=== PATIENT | female | born 2000 | race Caucasian/White ===

== ENCOUNTER 2021-10-30 05:40 | Day surgery (SDC) | payer BC, OTHER ==
[2021-10-25 15:54] LABS: BASOPHILS % (AUTO) 0.3 % (0.0-5.0); EOSINOPHILS % (AUTO) 1.8 % (0.0-8.0); HEMATOCRIT 38.3 % (36-48); LYMPHOCYTES % (AUTO) 28.9 % (21.0-51.0); MEAN CORPUSCULAR HGB CONC 33.4 g/dL (32.0-36.0); MEAN CORPUSCULAR VOLUME 89.9 fL (80-100); MONOCYTES % (AUTO) 9.2 % (3.0-13.0); NEUTROPHILS % (AUTO) 59.5 % (40.0-77.0); PLATELET COUNT (AUTO) 194 K/uL (130-400); RED BLOOD CELL COUNT(AUTO) 4.26 MIL/uL (4.00-5.50); RED CELL DISTRIBUTION WIDTH 12.1 % (11.0-15.5); WHITE BLOOD COUNT (AUTO) 6.7 K/uL (4.8-10.8)
[2021-10-25 16:13] LABS: CREATININE 0.6 mg/dL (0.5-1.5); POTASSIUM 3.8 mmol/L (3.5-5.1)
[2021-10-29 08:55] VITALS: BP 114/75
[2021-10-30] VITALS (16 sets, daily range): BP systolic 120–133; BP diastolic 59–77
[~2021-10-30] VITALS: Ht 180.3 cm; Wt 63.9 kg
[2021-10-30] MEDS: CEFAZOLIN SODIUM 1 GM VIAL IVP SCH ×2 (06:00→07:20)
[2021-10-30] MEDS ORDERED: LACTATED RINGERS 1000ML 1,000 ML IV SCH (06:00)
[2021-10-30] MEDS ORDERED: FAMOTIDINE 20MG VIAL IV ONE (06:49)
[2021-10-30] MEDS ORDERED: LIDOCAINE PF 100MG/5ML (2%) SYRINGE 5ML ONE (06:59)
[2021-10-30] MEDS ORDERED: PROPOFOL 10 MG/ML 20ML VIAL IV ONE (06:59)
[2021-10-30] MEDS ORDERED: FENTANYL CITRATE PF 50 MCG/1 ML 2ML VIAL ONE (07:00)
[2021-10-30] MEDS ORDERED: MIDAZOLAM HCL 1 MG/ML 2ML VIAL ONE (07:00)
[2021-10-30] MEDS ORDERED: ONDANSETRON 4MG INJ ONE (07:01)
[2021-10-30] MEDS ORDERED: MEPERIDINE-PF 25 MG/ML SYG ONE (07:47)
[2021-10-30] MEDS ORDERED: EPHEDRINE SULFATE 50 MG/ML AMPULE ONE (08:13)
[2021-10-30] MEDS ORDERED: KETOROLAC 30MG VIAL (30MG/ML) ONE (09:50)
== END 2021-10-30 10:35 | disposition home or self-care (01) ==
LOC: DAH 05:40
PROVIDERS: ATTEND Orthopaedic Surgery
DX: S83.242A Other tear of medial meniscus, current injury, left knee, initial encounter (principal); M22.42 Chondromalacia patellae, left knee; M79.4 Hypertrophy of (infrapatellar) fat pad; Z79.899 Other long term (current) drug therapy; Z98.890 Other specified postprocedural states; X58.XXXA Exposure to other specified factors, initial encounter; Y93.89 Activity, other specified; Y92.89 Other specified places as the place of occurrence of the external cause
CPT/HCPCS: 29882; 36415; 80048; 81025; 84703; 85025; 87635; A4215; A4221; A4222; A4223; A4606; A4649 ×4; A4663; A5120; A6223; A6260; C1713; C9803; J0690; J1885; J2001; J2175; J2250; J2405; J2704; J3010; J3490 ×2; J7120